=== PATIENT | female | born 2000 | race American Indian/Alaskan Native ===

== ENCOUNTER 2021-02-01 02:11 | Emergency (ER) | payer BC ==
--- NOTE | 2021-02-01 03:48 | XRay Report ---
XR chest routine 2V INDICATION / CLINICAL INFORMATION: chest pain. COMPARISON: None available. FINDINGS: SUPPORT DEVICES: None. HEART /PULMONARY VASCULATURE: No significant abnormality. LUNGS / PLEURA: No significant pulmonary or pleural abnormality. No pneumothorax. ADDITIONAL FINDINGS: No significant additional findings. IMPRESSION: 1. No acute findings. Signer Name: Delvis Bundy MD Signed: 02/01/2021 3:43 AM Workstation Name: [id number]
--- NOTE | 2021-02-01 03:59 | Emergency Department Report ---
ED Chest Pain HPI - General Chief Complaint: Chest Pain Stated Complaint: CHEST PAIN Time Seen by Provider: 02/01/21 03:54 Source: patient Mode of arrival: Ambulatory Limitations: No Limitations - History of Present Illness Initial Comments: 21-year-old -[place] female presents to the emergency room complaining of intermittent upper left chest pain has been going on for about 2 weeks. Patient states that the pain got worse today. Patient states he feels like his sore. Patient states that she has a history of heartburn and diagnosed with G ERD. Patient states that Tums are not working. 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 She states that she does eat and lie down. Has not taken any pain medication. Denies any diaphoresis no radiation of pain has not seen a doctor. Denies any cough. States pain is sharp and feels like it sore. Has not got a Covid vaccination. Last menstrual period was 02/01/2021. MD Complaint: chest pain Onset/Timin -: week(s) Onset: during rest Pain Location: left chest Pain Radiation: none Severity: mild Quality: tightness, sharp Consistency: intermittent Improves With: nothing Worsens With: nothing re: denies: nausea, vomting, diaphoresis, sense of impending doom Other Symptoms: denies: cough, fever, rash, acid taste in mouth, palpitations Treatments Prior to Arrival: other (Tums) - Related Data Allergies Allergy/AdvReac Type Severity Reaction Status Date / Time No Known Allergies Allergy Unverified 02/01/21 02:57 Heart Score - HEART Score History: Slightly suspicious EKG: Normal Age: < 45 Risk factors: No known risk factors Troponin: < normal limit (Did not order) HEART Score: 0 - EKG Read Time Time EKG Completed: 14:28 EKG Read Time: 14:29 ED Review of Systems ROS: Stated complaint: CHEST PAIN Other details as noted in HPI Comment: All other systems reviewed and negative ED Past Medical Hx - Past Medical History Previous Medical History?: Yes Hx GERD: Yes - Surgical History Past Surgical History?: No - Social History Smoking Status: Never Smoker Substance Use Type: None ED Physical Exam - General Limitations: No Limitations General appearance: alert, in no apparent distress - Head Head exam: Present: atraumatic, normocephalic - Eye Eye exam: Present: normal appearance - ENT ENT exam: Present: mucous membranes moist, normal external ear exam - Neck Neck exam: Present: normal inspection - Respiratory Respiratory exam: Present: normal lung sounds bilaterally, chest wall tenderness (Left upper chest). Absent: respiratory distress, accessory muscle use - Cardiovascular Cardiovascular Exam: Present: regular rate, normal rhythm. Absent: systolic murmur, diastolic murmur, rubs, gallop - GI/Abdominal GI/Abdominal exam: Present: soft, normal bowel sounds. Absent: tenderness - Extremities Exam Extremities exam: Present: normal inspection, full ROM - Back Exam Back exam: Present: normal inspection, full ROM - Neurological Exam Neurological exam: Present: alert, oriented X3, normal gait - Psychiatric Psychiatric exam: Present: normal affect, normal mood - Skin Skin exam: Present: warm, dry, intact, normal color. Absent: rash ED Course Vital Signs 02/01/21 02:33 Temperature 98.4 F Pulse Rate 95 H Respiratory 16 Rate Blood Pressure 126/75 O2 Sat by Pulse 100 Oximetry IKE score - Ike Score Age > 65: (0) No Aspirin use within the Past 7 Days: (0) No 3 or more CAD Risk Factors: (0) No 2 or more Angina events in past 24 hrs: (0) No Known CAD with more than 50% Stenosis: (0) No Elevated Cardiac Markers: (0) No ST Deviation Greater than 0.5mm: (0) No IKE Score: 0 ED Medical Decision Making - EKG Data Interpretation: normal EKG - Radiology Data Radiology results: report reviewed [facility] [address] [place] [address] XRay Report Signed Patient: BHAKTI PATEL MR#: [id number] : 2000 Acct:[id number] Age/Sex: 21 / F ADM Date: 02/01/21 Loc: ED Attending Dr: Ordering Physician: CHINMAY BAREGR MD Date of Service: 02/01/21 Procedure(s): XR chest routine 2V Accession Number(s): [id number] cc: ED MD DENITA Fluoro Time In Minutes: XR chest routine 2V INDICATION / CLINICAL INFORMATION: chest pain. COMPARISON: None available. FINDINGS: SUPPORT DEVICES: None. HEART /PULMONARY VASCULATURE: No significant abnormality. LUNGS / PLEURA: No significant pulmonary or pleural abnormality. No pneumothorax. ADDITIONAL FINDINGS: No significant additional findings. IMPRESSION: 1. No acute findings. Signer Name: Stef Bundy MD Signed: 02/01/2021 3:43 AM Workstation Name: [id number] Transcribed By: SAGE Dictated By: STEF BUNDY MD Electronically Authenticated By: STEF BUNDY MD Signed Date/Time: 02/01/21342 DD/ 2 TD/TT: Print - Medical Decision Making 21-year-old -[place] female presents to the emergency room complaining of intermittent upper left chest pain has been going on for about 2 weeks. Patient states that the pain got worse today. Patient states he feels like his sore. Patient states that she has a history of heartburn and diagnosed with GERD. Patient states that Tums are not working. 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 She states that she does eat and lie down. Has not taken any pain medication. Denies any diaphoresis no radiation of pain has not seen a doctor. Denies any cough. States pain is sharp and feels like it sore. Has not got a Covid vaccination. Last menstrual period was 02/01/2021. The patient is resting comfortably and feeling better, is alert and in no distress. The repeat examination is unremarkable and benign. The electrocardiogram shows no signs of acute ischemia and the history, exam, diagnostic testing and current condition do not suggest that this patient is having acute myocardial infarction, significant arrhythmia, unstable angina, esophageal perforation, pulmonary embolism, aortic dissection, pneumothorax, severe pneumonia, sepsis or other significant pathology that would warrant further testing, continued ED treatment, admission, or cardiology or other specialist consultation at this point. The vital signs have been stable. The patient's condition is stable and appropriate for discharge. The patient will pursue further outpatient evaluation with primary care physician, other designated physician or senior abap developer. The patient and/or caregiver have expressed a clear in thorough understanding and agrees to the follow-up as instructed. Critical care attestation.: If time is entered above; I have spent that time in minutes in the direct care of this critically ill patient, excluding procedure time. ED Disposition Clinical Impression: Nonspecific chest pain, Chest wall tenderness, History of gastroesophageal reflux (GERD) Disposition: TO HOME OR SELFCARE Is pt being admited?: No Does the pt Need Aspirin: No Condition: Stable Instructions: Preventing Gastrointestinal Problems During Exercise, Nonspecific Chest Pain, Adult, [id number], Chest Wall Pain, [id number] Additional Instructions: Recommend to follow-up with your primary care provider and senior abap developer. Also recommend to follow-up with a dog pound attendant to discuss about getting back on your GERD medication. I have listed referrals below for your convenience. Referrals: [facility] [Provider Group] - 3-5 Days [facility] [Provider Group] - 3-5 Days [facility] [Provider Group] - 3-5 Days Forms: Work/School Release Form(ED) Time of Disposition: 04:02
[2021-02-01 06:27] VITALS: BP 102/68
--- NOTE | 2021-02-01 10:52 | Electrocardiograph Report ---
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
== END 2021-02-01 05:08 | disposition home or self-care (01) ==
LOC: ED 02:11
DX: K21.9 Gastro-esophageal reflux disease without esophagitis (principal); R07.89 Other chest pain
CPT/HCPCS: 71046; 93005